=== PATIENT | female | born 1985 | race Caucasian/White ===

== ENCOUNTER 2020-12-30 16:14 | Outpatient (CLI) | payer OTHER, SELFPAY ==
--- NOTE | ~2020-12-30 | US_ITS ---
US OB <=14 wk fetus w TV DATE: 12/30/2020 16:45 INDICATION: age and viability determination TECHNIQUE: Real-time imaging via transabdominal and transvaginal approaches COMPARISON: None FINDINGS: The uterus measures 9.8 cm height, 4.2 cm anteroposterior and 5.2 cm transverse dimension. Uterine nabothian small cervical cyst. An intrauterine gestational sac is identified, normally shaped, with normal surrounding hyperechogeni city consistent with decidual reaction. Yolk sac and pole are detected. heart rate of 111 bpm. Renova-rump length averages 0.56 cm, consistent with estimated gestational age of 6 weeks 2 days +/- 4 days. DIANE by ultrasound is 08/23/2021 compared to 08/18/2021 by LMP. 5.7 x 3.9 x 5.0 cm left ovarian cyst. The ovaries and adnexal areas are otherwise unremarkable. No ab normal pelvic free fluid collection. IMPRESSION: Early live intrauterine gestation; estimated gestational age is 6 weeks 2 days +/- 4 days ; DIANE 08/23/2021 Reviewed, dictated and finalized at [facility]. Reviewed, dictated and finalized at location A. 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
== END 2020-12-30 16:15 ==
LOC: MICIMG 16:15
PROVIDERS: Visit Provider Obstetrics & Gynecology
DX: Z36.89 Encounter for other specified antenatal screening (principal); Z3A.01 Less than 8 weeks gestation of pregnancy
CPT/HCPCS: 76801; 76817

== ENCOUNTER 2021-02-25 13:27 | Emergency (ER) | payer OTHER, SELFPAY ==
--- NOTE | ~2021-02-25 | US_ITS ---
EXAMINATION: US OB limited DATE: 02/25/2021 15:09 INDICATION: Vaginal bleeding. Estimated gestational age of 14 weeks and 3 days. TECHNIQUE: Real-time ultrasound of the pelvis was performed. COMPARISON: Ultrasound 12/30/2020 FINDINGS: There is a single fetus in breech presentation. The placenta is posterior. There is a 1.4 x 1.3 x 1. 9 cm hematoma at the margin of the placenta. heart rate is 154 beats per minute (bpm). The amni otic fluid volume is subjectively normal. IMPRESSION: 1. Single living fetus in breech presentation. 2. Small hematoma at the margin of the placenta. Reviewed, dictated and finalized at location B.
[2021-02-25 13:30] VITALS: BP 151/85; PULSE 138; RESP 17; TEMP 36.9; O2SAT 100
--- NOTE | 2021-02-25 14:00 | ED.PREGNANCY ---
HPI - General Chief complaint: Vaginal Bleeding Stated complaint: vaginal bleeding at 15 wks Time Seen by Provider: 02/25/21 14:00 Source: patient and family Mode of arrival: ambulatory Limitations: no limitations History of Present Illness HPI Narrative: Patient is a 35-year-old female, G1, P0 currently 15 weeks who presents for evaluation of vaginal bleeding. Patient states she began to experience light spotting around noon today which was brownish in color. No bright red or brisk bleeding. Pt has had abdominal pain since the time she found out she was . She states this has been attributed to round ligament pain. Pain is dull in nature. No contraction like pain. No loss of fluids. No recent intercourse. Patient has been on pelvic rest due to the nature of her job which requires her to stand for long periods of time. Patient does state last week a 20 pound dog jumped onto her lap but she was not having any bleeding at that time thus did not seek any care or assessment. Patient is unsure of her blood type. Patient follows a Dr. Dolly Duran. Related Data Home Medications Medication Instructions Recorded Confirmed hydroxyzine HCl 02/25/21 Allergies Allergy/AdvReac Type Severity Reaction Status Date / Time cefaclor Allergy Mild Unknown Verified 02/25/21 13:34 codeine Allergy Unknown RASH AND Verified 02/25/21 13:34 VOMITING Review of Systems Review of Systems: Narrative: CONSTITUTIONAL: Denies fever CARDIOVASCULAR: Denies chest pain RESPIRATORY: Denies cough or dyspnea. GASTROINTESTINAL:Reports lower abdominal pain : Reports vaginal bleeding, denies dysuria SKIN: Denies rash MUSCULOSKELETAL: Denies back pain NEUROLOGIC: Denies headache [facility] Social History Social History (Updated 02/25/21 @ 14:48 by Rowan Masterson MD) Smoking status: Never smoker Alcohol intake: never Substance use: never Occupation/Education: occupation Additional occupation/education comments: [employer] Gender identity (if verbalized by the patient): Female Exam Narrative: Exam Narrative: GENERAL: Awake, alert, conversant HEAD: Normocephalic, atraumatic. EYES: PERRLA and EOMI. ENT: Nares clear, no rhinorrhea or epistaxis. Mucous membranes moist. NECK: Supple. CHEST: No respiratory distress, breathing even and non labored HEART: Regular rate, sinus rhythm ABDOMEN:Non distended, non tender, fundus palpable below the umbilicus : Labia majora and minora normal without lesions. Vagina with scant blood. No cervical motion tenderness. No adnexal tenderness or fullness bilaterally. No discharge present. EXTREMITIES: Normal range of motion. No edema. SKIN: Warm, dry, no rash. NEURO:No focal deficits. Alert and oriented x3 Course Vital Signs Vital signs: Vital Signs Temperature 36.9 C 02/25/21 13:30 Pulse Rate 138 H 02/25/21 13:30 Respiratory Rate 17 02/25/21 13:30 Blood Pressure 151/85 H 02/25/21 13:30 Pulse Oximetry 100 02/25/21 13:30 Temperature 36.9 C 02/25/21 13:30 Pulse Rate 121 H 02/25/21 14:30 Respiratory Rate 17 02/25/21 13:30 Blood Pressure 154/115 H 02/25/21 14:30 Pulse Oximetry 100 02/25/21 13:30 MDM - OB/Uterine Contractions MDM Narrative Medical decision making narrative: Patient presented for evaluation of vaginal bleeding in the setting of early . At the time of assessment patient is tachycardic. She is quite anxious and tearful at the time of initial assessment. Pelvic exam obtained and patient does have some scant bleeding, no brisk bleeding or evidence of large clots. No parts on exam. Patient does have some mild abdominal tenderness which is nonfocal, no peritoneal signs. IV access was obtained and patient was given Tylenol. Bedside ultrasound obtained which shows good movement heart rate of the fetus in the 150s. Laboratory work-up is reassuring. Mild leukocytosis which can be seen in the setting of pregna
[2021-02-25 14:27] LABS: Basophils Absolute Auto 0.1 K/mm3 (0.0-0.1); Basophils Percent Auto 0.4 % (0.2-1.2); Eosinophils Absolute Auto 0.1 K/mm3 (0-0.3); Eosinophils Percent Auto 0.8 % (0-4.4); Hematocrit 38.6 % (37.0-47.0); Hemoglobin 13.3 g/dL (12.0-15.0); Immature Granulocyte Absolute 0.35 K/mm3 (0.00-0.031); Immature Granulocyte Percent A 2.6 % (0-0.5); Lymphocytes Absolute Auto 2.43 K/mm3 (0.9-3.2); Lymphocytes Percent Auto 17.9 % (18.3-44.2); Mean Corpuscular HGB Conc 34.5 g/dl (32-36); Mean Corpuscular Hemoglobin 30.2 pg (26-34); Mean Corpuscular Volume 87.5 fl (80-100); Mean Platelet Volume 9.1 fl (7.4-10.4); Monocytes Absolute Auto 1.3 K/mm3 (0.1-0.6); Monocytes Percent Auto 9.6 % (2.6-8.5); Neutrophils Absolute Auto 9.4 K/mm3 (1.3-6.7); Neutrophils Percent Auto 68.7 % (45.5-73.1); Platelet Count Result 537 k/mm3 (150-375); Red Blood Count 4.41 M/mm3 (4.2-5.4); Red Cell Distribution Width 12.2 % (11.5-14.5); White Blood Count 13.6 K/mm3 (4.5-10.0)
[2021-02-25 14:28] VITALS: BP 144/92; PULSE 110
[2021-02-25 14:29] VITALS: BP 144/89; PULSE 112
[2021-02-25 14:30] VITALS: BP 154/115; PULSE 121
--- NOTE | 2021-02-25 14:30 | PC.NURSE ---
Patient requests no IV at this time due to her anxiety getting worse when the IV is in.
[2021-02-25 14:45] LABS: INR 0.9; Partial Thromboplastin Time 26.4 SECONDS (22.3-36.8); Prothrombin Time 12.8 Seconds (11.1-14.7)
[2021-02-25 16:43] LABS: Add Urine Microscopic? YES; Appearance Urine Cloudy (Clear); Bacteria Urine 2+ /hpf; Bilirubin Urine Negative (Negative); Blood Urine 1+ (Negative); Color Urine Yellow (Yellow); Glucose Urine UA Negative (Negative); Ketones Urine Negative (Negative); Leukocyte Esterase Ur 2+ LEU/UL (Negative); Nitrate Urine Negative (Negative); Protein Urine Negative (Negative); Specific Grav Ur 1.006 (1.001-1.035); Squamous Epithelial Cell Urine Many /hpf (Few); Urobilinogen Urine Negative mg/dL (<2.0); WBC Urine 16-20 /hpf
== END 2021-02-25 17:20 | disposition home or self-care (01) ==
PROVIDERS: Emergency Provider Emergency Medicine; PCP Family Medicine
DX: O46.92 Antepartum hemorrhage, unspecified, second trimester (principal); Z3A.15 15 weeks gestation of pregnancy
CPT/HCPCS: 36415; 76815; 81001; 84443; 84702; 85025; 85461; 85610; 85730; 87077; 87086; 87088; 99284

== ENCOUNTER 2021-05-10 19:46 | Emergency (ER) | payer OTHER, SELFPAY ==
[2021-05-10 19:47] VITALS: BP 161/95; PULSE 102; RESP 17; TEMP 36.8; O2SAT 100
[2021-05-10] MEDS: TETANUS,DIPHTHERIA,AC PERTUSSIS ADULT (0.5 ML) BOOSTRIX IM (20:02)
--- NOTE | 2021-05-10 20:22 | ED.GENADULT ---
HPI - General Adult General Chief complaint: Wound/Laceration Stated complaint: LAC Time Seen by Provider: 05/10/21 19:56 Source: patient and RN notes reviewed Mode of arrival: ambulatory Limitations: no limitations History of Present Illness HPI narrative: Patient is a 35-year-old female who presents with laceration of the thumb that occurred just prior to arrival patient was using a sample box maker when she cut the thumb patient is currently but denies any other complaints. Patient notes her tetanus is not up-to-date. Related Data Home Medications Medication Instructions Recorded Confirmed hydroxyzine HCl 02/25/21 Allergies Allergy/AdvReac Type Severity Reaction Status Date / Time cefaclor Allergy Mild Unknown Verified 05/10/21 19:46 codeine Allergy Unknown RASH AND Verified 05/10/21 19:46 VOMITING Review of Systems Review of Systems: All systems reviewed & are unremarkable except as noted in HPI and below PMFSH Social History Social History Smoking status: Never smoker Alcohol intake: never Substance use: never Additional occupation/education comments: [employer] Gender identity (if verbalized by the patient): Female Exam Narrative: Exam Narrative: GENERAL: Well-appearing, well-nourished, and in no acute distress. HEAD: Normocephalic, atraumatic. EYES: PERRLA and EOMI. ENT: Nares clear, no rhinorrhea or epistaxis. Mucous membranes moist. EXTREMITIES: Normal range of motion. No edema. Less than half centimeter linear superficial laceration to the tip of the left thumb not requiring closure SKIN: Warm, dry, no rash. NEURO: No focal deficits. Alert and oriented x3. Neurovascularly intact PSYCH: Normal mood and affect. Course Course Emergency Course: Patient's wound was dressed tetanus was given will be discharged with outpatient follow-up with primary care Vital Signs Vital signs: Vital Signs Temperature 98.2 F 05/10/21 19:47 Pulse Rate 102 H 05/10/21 19:47 Respiratory Rate 17 05/10/21 19:47 Blood Pressure 161/95 H 05/10/21 19:47 Pulse Oximetry 100 05/10/21 19:47 Temperature 98.2 F 05/10/21 19:47 Pulse Rate 102 H 05/10/21 19:47 Respiratory Rate 17 05/10/21 19:47 Blood Pressure 161/95 H 05/10/21 19:47 Pulse Oximetry 100 05/10/21 19:47 Medical Decision Making MDM Narrative Medical decision making narrative: Patients injury or pain is consistent with musculoskeletal etiology. No signs of neurological or vascular compromise on exam. Compartments and tisues are soft without signs of compartment syndrome. Pain is felt appropriate for further evaluation on an outpatient basis. Vital Signs Vital Signs: Vital Signs Temperature 98.2 F 05/10/21 19:47 Pulse Rate 102 H 05/10/21 19:47 Respiratory Rate 17 05/10/21 19:47 Blood Pressure 161/95 H 05/10/21 19:47 Pulse Oximetry 100 05/10/21 19:47 Temperature 98.2 F 05/10/21 19:47 Pulse Rate 102 H 05/10/21 19:47 Respiratory Rate 17 05/10/21 19:47 Blood Pressure 161/95 H 05/10/21 19:47 Pulse Oximetry 100 05/10/21 19:47 Discharge Plan Discharge Clinical Impression: Laceration Patient Disposition: Home, Self-Care Condition: Stable Instructions: Antibiotic Form, Laceration (ED) Additional Instructions: Keep wound clean and dry. Do not soak, take baths, or swim until wound is completely healed. If any signs of infection such as redness, swelling, increasing pain, drainage of purulent discharge, streaks up your extremity develop, seek medical attention immediately. Follow-up with primary care in the next 7 days as needed Prescriptions: No Action hydroxyzine HCl 50 mg tablet RF: 0 acetaminophen 500 mg capsule 500 mg PO Q6H PRN (Reason: fever or pain) Qty: 30 RF: 0 magnesium 30 mg tablet 30 mg PO .PRN daily 5 Days Qty: 20 RF: 0 Follow-up/Referrals: Buddy,Kenton Grier MD [Marcela
[2021-05-10 20:50] VITALS: BP 151/76; PULSE 96; RESP 18; TEMP 36.6; O2SAT 100
== END 2021-05-10 20:50 | disposition home or self-care (01) ==
PROVIDERS: Emergency Provider Emergency Medicine; PCP Family Medicine
DX: S61.012A Laceration without foreign body of left thumb without damage to nail, initial encounter (principal); Z23 Encounter for immunization; W27.8XXA Contact with other nonpowered hand tool, initial encounter; Z3A.00 Weeks of gestation of pregnancy not specified
CPT/HCPCS: 90471; 90715; 99282

== ENCOUNTER 2021-07-05 18:07 | Observation (INO) | payer OTHER, SELFPAY ==
--- NOTE | ~2021-07-05 | US_ITS ---
US venous doppler LE RT DATE: 07/05/2021 19:23 INDICATION: Right leg swelling. Patient is 34 weeks gravid. TECHNIQUE: Real-time and color flow imaging and Doppler analysis of the veins of the right lower extr emity COMPARISON: None FINDINGS: The greater saphenous vein is patent. There is spontaneous and phasic flow and normal augme ntation and color flow signal and normal compression of the deep veins of the right leg. IMPRESSION: Negative examination; no evidence of deep venous thrombosis of the right lower extremity Reviewed, dictated and finalized at [facility]. Reviewed, dictated and finalized at location A.
[2021-07-05 18:30] VITALS: BMI 48.3
[2021-07-05 18:32] VITALS: BP 130/87; PULSE 109
--- NOTE | 2021-07-05 18:35 | PC.NURSE ---
This patient, Jessica Alford, admitted to the OB room OB Post 116 for observation. Patient/family oriented to hospital policies and general routines including ID bracelet, bed and alarms, visiting hours, pain management, procedures, bathroom and other care routines, personal items, smoking policy, room service/diet, and visiting hours. Patient/Family are encouraged to report perceived risks to care and to ask questions if they do not understand what they are told or what they should do.
[2021-07-05 18:45] VITALS: BP 100/63; PULSE 108
--- NOTE | 2021-07-05 18:45 | PC.NURSE ---
Pt states she has had swelling of lower extremities with . States today she noted increase in swelling of right leg as compared to left. Denies pain. States slight bruise feeling to top of right foot. No redness or warmth. Measurements done Right ankle 27.5 cm Left 26. Right calf 43.5 Left calf 43. Pedal pulsed noted to both feet with doppler. Pt has good range of motion to both lower extremities.
[2021-07-05 19:00] VITALS: BP 122/76; PULSE 107
[2021-07-05 19:08] VITALS: TEMP 36.9
--- NOTE | 2021-07-05 19:10 | PC.NURSE ---
To ultrasound for doppler.
--- NOTE | 2021-07-05 19:30 | PC.NURSE ---
Pt back in room after doppler study. No complaints. No change in condition.
--- NOTE | 2021-07-05 19:44 | PC.NURSE ---
Negative doppler result reported to Dr. Mcgregor. Pt will be discharged to home.
--- NOTE | 2021-07-28 08:48 | PM.OBTRLD ---
OB - Triage/Final Diagnosis Visit Information Comments/Additional reasons for admission: I have assessed the risk for this patient, Jessica Alford, and determined that she would benefit from observation care. Final Diagnosis (1) Edema during : Code(s): O12.00 - Gestational edema, unspecified trimester Status: Acute
== END 2021-07-05 20:30 | disposition home or self-care (01) ==
PROVIDERS: Admitting Provider Obstetrics & Gynecology; PCP Family Medicine; Visit Provider Obstetrics & Gynecology
DX: O12.03 Gestational edema, third trimester (principal); Z3A.33 33 weeks gestation of pregnancy; R22.41 Localized swelling, mass and lump, right lower limb
CPT/HCPCS: 93971; G0378; G0379

== ENCOUNTER 2021-07-30 11:30 | Outpatient (RCR) | payer OTHER, SELFPAY ==
[2021-07-30 12:09] VITALS: BP 127/72; PULSE 103
--- NOTE | 2021-07-30 16:24 | PM.OBTRLD ---
OB - Triage/Final Diagnosis Visit Information Reason for evaluation: decreased movement Comments/Additional reasons for admission: I have assessed the risk for this patient, Jessica Rodger Alford, and determined that she would benefit from observation care.
== END 2021-09-22 10:34 | disposition home or self-care (01) ==
LOC: ANHOBOP 11:30
PROVIDERS: PCP Family Medicine; Visit Provider Obstetrics & Gynecology
DX: O36.8130 Decreased fetal movements, third trimester, not applicable or unspecified (principal); Z3A.37 37 weeks gestation of pregnancy
CPT/HCPCS: 59025

== ENCOUNTER 2021-08-07 16:05 | Outpatient (CLI) | payer OTHER, SELFPAY ==
[2021-08-07] VITALS (9 sets, daily range): BP systolic 109–143; BP diastolic 57–90; PULSE 111–119; RESP 18; TEMP 36.6; BMI 38.4
[2021-08-07 18:12] LABS: Basophils Absolute Auto 0.1 K/mm3 (0.0-0.1); Basophils Percent Auto 0.7 % (0.2-1.2); Eosinophils Absolute Auto 0.1 K/mm3 (0-0.3); Eosinophils Percent Auto 0.9 % (0-4.4); Hematocrit 36.2 % (37.0-47.0); Hemoglobin 12.4 g/dL (12.0-15.0); Immature Granulocyte Absolute 0.79 K/mm3 (0.00-0.031); Immature Granulocyte Percent A 5.4 % (0-0.5); Lymphocytes Absolute Auto 1.97 K/mm3 (0.9-3.2); Lymphocytes Percent Auto 13.4 % (18.3-44.2); Mean Corpuscular HGB Conc 34.3 g/dl (32-36); Mean Corpuscular Hemoglobin 30.2 pg (26-34); Mean Corpuscular Volume 88.1 fl (80-100); Mean Platelet Volume 8.5 fl (7.4-10.4); Monocytes Absolute Auto 1.2 K/mm3 (0.1-0.6); Monocytes Percent Auto 8.1 % (2.6-8.5); Neutrophils Absolute Auto 10.6 K/mm3 (1.3-6.7); Neutrophils Percent Auto 71.5 % (45.5-73.1); Platelet Count Result 450 k/mm3 (150-375); Red Blood Count 4.11 M/mm3 (4.2-5.4); Red Cell Distribution Width 13.3 % (11.5-14.5); White Blood Count 14.8 K/mm3 (4.5-10.0)
[2021-08-07 18:17] LABS: Add Urine Microscopic? YES; Appearance Urine Cloudy (Clear); Bacteria Urine Trace /hpf; Bilirubin Urine Negative (Negative); Color Urine Yellow (Yellow); Glucose Urine UA Negative (Negative); Ketones Urine Trace mg/dL (Negative); Leukocyte Esterase Ur 2+ LEU/UL (Negative); Mucus Urine Rare /lpf; Nitrate Urine Negative (Negative); Protein Urine 1+ mg/dL (Negative); RBC Urine 0-2 /hpf (0-2); Specific Grav Ur 1.018 (1.001-1.035); Squamous Epithelial Cell Urine Many /hpf (Few); Urobilinogen Urine Negative mg/dL (<2.0)
[2021-08-07 18:21] LABS: Blood Urine Negative (Negative)
[2021-08-07 18:23] LABS: Alanine Aminotransferase 15 U/L (4-35); Albumin Level 3.7 g/dL (3.5-5.1); Alkaline Phosphatase 273 U/L (38-126); Anion Gap 7 mmol/L (8-16); Aspartate Amino Transferase 26 U/L (14-36); Bilirubin,Total 0.3 mg/dL (0.2-1.3); Blood Urea Nitrogen 9 mg/dL (7-17); Carbon Dioxide 23 mmol/L (22-30); Chloride 104 mmol/L (98-107); Estimated Glomerular Filt Rate > 60; Glucose 118 mg/dL (65-110); Potassium 3.7 mmol/L (3.4-5.0); Sodium 134 mmol/L (137-145); Uric Acid 6.2 mg/dL (2.5-7.5)
[2021-08-07 18:54] LABS: Creatinine Urine 159.6 mg/dL
[2021-08-07 19:23] LABS: Total Protein Urine Random < 5 mg/dL
[2021-08-07 19:24] LABS: Ur Ttl Prot Creatinine Ratio < 0.03 mg/mg (0-0.20)
--- NOTE | 2021-08-07 21:35 | PM.OBTRLD ---
OB - Triage/Final Diagnosis Visit Information Date of evaluation: 08/07/21 Reason for evaluation: threatened labor Comments/Additional reasons for admission: I have assessed the risk for this patient, Jessica Alford, and determined that she would benefit from observation care. Evaluation Laboratory results: Laboratory Tests 08/07/21 08/07/21 08/07/21 17:52 17:52 17:52 WBC 14.8 H RBC 4.11 L Hgb 12.4 Hct 36.2 L MCV 88.1 MCH 30.2 MCHC 34.3 RDW 13.3 Plt Count 450 H MPV 8.5 Immature Gran % (Auto) 5.4 H Neut % (Auto) 71.5 Lymph % (Auto) 13.4 L [place] % (Auto) 8.1 Eos % (Auto) 0.9 Baso % (Auto) 0.7 Lymph # (Auto) 1.97 [place] # (Auto) 1.2 H Eos # (Auto) 0.1 Baso # (Auto) 0.1 Abs Immat Gran (auto) 0.79 H Absolute Neuts (auto) 10.6 H Absolute Nucleated RBC 0.0 Nucleated RBC % 0.0 Sodium 134 L Potassium 3.7 Chloride 104 Carbon Dioxide 23 Anion Gap 7 L BUN 9 Creatinine 0.60 L Estim Creat Clear Calc Not Reportable Estimated GFR > 60 Glucose 118 H Uric Acid 6.2 Calcium 10.0 Total Bilirubin 0.3 AST 26 ALT 15 Alkaline Phosphatase 273 H Total Protein 7.0 Albumin 3.7 Urine Color Urine Appearance Urine pH Ur Specific [place] Urine Protein Urine Glucose (UA) Urine Ketones Ur Blood (Man) Urine Nitrate Urine Bilirubin Urine Urobilinogen Leukocyte Esterase Rfl Urine RBC Urine WBC Ur Squamous Epith Cells Urine Bacteria Urine Mucus U Random Total Protein < 5 Urine Creatinine 159.6 Protein/Creat Ratio 2 < 0.03 08/07/21 17:52 WBC RBC Hgb Hct MCV MCH MCHC RDW Plt Count MPV Immature Gran % (Auto) Neut % (Auto) Lymph % (Auto) [place] % (Auto) Eos % (Auto) Baso % (Auto) Lymph # (Auto) [place] # (Auto) Eos # (Auto) Baso # (Auto) Abs Immat Gran (auto) Absolute Neuts (auto) Absolute Nucleated RBC Nucleated RBC % Sodium Potassium Chloride Carbon Dioxide Anion Gap BUN Creatinine Estim Creat Clear Calc Estimated GFR Glucose Uric Acid Calcium Total Bilirubin AST ALT Alkaline Phosphatase Total Protein Albumin Urine Color Yellow Urine Appearance Cloudy H Urine pH 6.0 Ur Specific [place] 1.018 Urine Protein 1+ H Urine Glucose (UA) Negative Urine Ketones Trace Ur Blood (Man) Negative Urine Nitrate Negative Urine Bilirubin Negative Urine Urobilinogen Negative Leukocyte Esterase Rfl 2+ H Urine RBC 0-2 Urine WBC 7-9 H Ur Squamous Epith Cells Many H Urine Bacteria Trace Urine Mucus Rare U Random Total Protein Urine Creatinine Protein/Creat Ratio 2 Vital signs: Vital Signs - 24 hr 08/07/21 17:16 08/07/21 17:46 08/07/21 18:16 Temperature Pulse Rate 117 H 114 H 119 H Respiratory Rate Blood Pressure 143/80 H 109/72 Blood Pressure [Left Arm] 134/90 08/07/21 18:31 08/07/21 18:38 08/07/21 18:46 Temperature 97.9 F Pulse Rate 118 H 112 H Respiratory Rate 18 Blood Pressure 114/70 117/57 L Blood Pressure [Left Arm] 08/07/21 19:01 08/07/21 19:16 08/07/21 19:17 Temperature Pulse Rate 111 H 117 H 117 H Respiratory Rate Blood Pressure 127/84 136/76 136/76 Blood Pressure [Left Arm]
== END 2021-08-07 19:34 | disposition home or self-care (01) ==
LOC: ANHOBOP 17:31 → ANHLDR 17:31
PROVIDERS: PCP Family Medicine; Visit Provider Obstetrics & Gynecology
DX: O42.90 Premature rupture of membranes, unspecified as to length of time between rupture and onset of labor, unspecified weeks of gestation (principal); O13.9 Gestational [pregnancy-induced] hypertension without significant proteinuria, unspecified trimester; Z3A.00 Weeks of gestation of pregnancy not specified
CPT/HCPCS: 36415; 80053; 81001; 82570; 84112; 84156; 84550; 85025; 87077; 87086; 87088; 99199

== ENCOUNTER 2021-08-12 05:02 | Inpatient (IN) | payer OTHER, SELFPAY ==
[2021-08-12] VITALS (118 sets, daily range): BP systolic 108–162; BP diastolic 48–102; PULSE 90–138; RESP 16; TEMP 36.7–37.2; O2SAT 81–100; BMI 39.6
--- NOTE | 2021-08-12 05:05 | PM.IMHP ---
H&P: HPI History of Present Illness Date/Time: 08/12/21 05:05 35-year-old 1 para 0 whose last menstrual was 11/11/2020, EDC is 08/18/2021, presents at 39 weeks gestation for induction of labor. She is positive for group B strep. She suffers from bipolar disorder panic disorder. Her cervix is favorable Chief Complaint: induction of labor at term with group B strep positive i Review of Systems Review of Systems: All systems reviewed & are unremarkable except as noted in HPI and below PMFSH Family History Family History Sibling Cerebral palsy Social History Social History Smoking status: Never smoker Alcohol intake: never Substance use: never Additional occupation/education comments: [employer] Gender identity (if verbalized by the patient): Female Spiritual care concerns: No Meds Home Medications and Allergies Home Medications Medication Instructions Recorded Confirmed Type acetaminophen 500 mg PO Q6H PRN #30 cap 02/25/21 08/07/21 Rx hydroxyzine HCl 50 mg PO HS 02/25/21 08/07/21 History Classic 1 tablet PO DAILY 07/05/21 08/07/21 History calcium carbonate-vitamin D3 1 tablet PO DAILY 07/05/21 08/07/21 History lamotrigine 100 mg PO DAILY 07/05/21 08/07/21 History ascorbic acid (vitamin C) 250 mg PO DAILY 08/07/21 08/07/21 History famotidine [Pepcid AC] 10 mg PO BID PRN 08/07/21 08/07/21 History Allergies Allergy/AdvReac Type Severity Reaction Status Date / Time cefaclor Allergy Unknown Hives Verified 07/30/21 16:09 codeine AdvReac Severe Nausea and Verified 07/30/21 16:09 Vomiting Exam Const: General: no acute distress Eyes: General: appearance normal, both eyes and all related structures Neck: Neck: supple and no JVD Thyroid: thyroid normal Resp: Effort & Inspection: normal respiratory effort Auscultation: clear to auscultation bilaterally Cardio: Rate: regular rate Rhythm: regular rhythm GI: Inspection: non-distended GI Palp: Yes Soft to palpation, No Tenderness to palpation present (GI) and No Guarding due to palpation present (GI) Auscultation: normal bowel sounds : General: Yes bladder normal to palpation External Female Exam: normal external appearance Speculum Exam - Vagina: normal vaginal discharge and No vaginal bleeding Speculum Exam - Cervix: nontender Bimanual exam- vagina & uterus: bladder normal to palpation and No Cervical tenderness present OB/external & speculum: No vaginal bleeding Skin: General skin exam: no rashes or lesions noted Extrem: General: normal to inspection and no edema Psych: Mental Status: mental status grossly normal Affect: normal affect Assessment and Plan Additional Plan impression term with favorable cervix group B strep with multiple psychologic abnormalities Plan: Medical induction of labor. Spontaneous vaginal delivery is expected. Group B strep prophylaxis will be undertaken. She has an epidural candidate
--- NOTE | 2021-08-12 05:24 | LDADM ---
This patient, Jessica Alford, was admitted to Labor/Delivery/Recovery 103 on 08/12/21 at 05:02. Plans for labor, pain management and were discussed with patient. Patient/family oriented to hospital policies and general routines including ID bracelet, bed and alarms, visiting hours, pain management, procedures, bathroom and other care routines, personal items, smoking policy, room service/diet and guest tray routines, infant security routines, and visiting hours. Patient/Family are encouraged to report perceived risks to care and to ask questions if they do not understand what they are told or what they should do. See OBIX for further documentation.
[2021-08-12] MEDS: LACTATED RINGERS 1,000 ML 125 ML IV CONT ×2 (05:33→08:35)
[2021-08-12] MEDS: OXYTOCIN 30 UNITS/NS 500 ML 30 UNITS/500 ML BAG 6 UNITS IV CONT (05:34)
[2021-08-12] MEDS: AMPICILLIN 2 GM/NS 100 ML 2 GM/100 ML BAG IVPB (05:34)
[2021-08-12 05:39] LABS: Basophils Absolute Auto 0.1 K/mm3 (0.0-0.1); Basophils Percent Auto 0.5 % (0.2-1.2); Eosinophils Absolute Auto 0.2 K/mm3 (0-0.3); Eosinophils Percent Auto 1.6 % (0-4.4); Hematocrit 35.7 % (37.0-47.0); Hemoglobin 12.3 g/dL (12.0-15.0); Immature Granulocyte Absolute 0.69 K/mm3 (0.00-0.031); Immature Granulocyte Percent A 5.2 % (0-0.5); Lymphocytes Absolute Auto 2.68 K/mm3 (0.9-3.2); Lymphocytes Percent Auto 20.2 % (18.3-44.2); Mean Corpuscular HGB Conc 34.5 g/dl (32-36); Mean Corpuscular Hemoglobin 30.7 pg (26-34); Mean Platelet Volume 8.5 fl (7.4-10.4); Monocytes Absolute Auto 1.4 K/mm3 (0.1-0.6); Monocytes Percent Auto 10.2 % (2.6-8.5); Neutrophils Absolute Auto 8.3 K/mm3 (1.3-6.7); Neutrophils Percent Auto 62.3 % (45.5-73.1); Platelet Count Result 428 k/mm3 (150-375); Red Blood Count 4.01 M/mm3 (4.2-5.4); Red Cell Distribution Width 13.3 % (11.5-14.5); White Blood Count 13.2 K/mm3 (4.5-10.0)
[2021-08-12 06:09] LABS: Atypical Lymphocytes Present
--- NOTE | 2021-08-12 09:13 | WPDANESEPP ---
Anes - Eval Pre Procedure Procedure: labor epidural Date/Time: 08/12/21 09:13 Surgeon: anastasiya mcneill Pre Op Diagnosis: IOL Patient Data Age: 35 Gender: F Height: 1.7 m Weight: 115 kg Last Vital Signs Temp 36.9 C 08/12/21 07:30 Pulse 100 08/12/21 09:01 BP 137/75 08/12/21 09:01 Allergies Allergy/AdvReac Type Severity Reaction Status Date / Time cefaclor Allergy Unknown Hives Verified 08/12/21 05:30 codeine AdvReac Severe Nausea and Verified 08/12/21 05:30 Vomiting Home Medications Medication Instructions Recorded Confirmed Type acetaminophen 500 mg PO Q6H PRN #30 cap 02/25/21 08/12/21 Rx hydroxyzine HCl 50 mg PO HS 02/25/21 08/07/21 History Classic 1 tablet PO DAILY 07/05/21 08/07/21 History calcium carbonate-vitamin D3 1 tablet PO DAILY 07/05/21 08/07/21 History lamotrigine 100 mg PO DAILY 07/05/21 08/12/21 History ascorbic acid (vitamin C) 250 mg PO DAILY 08/07/21 08/07/21 History famotidine [Pepcid AC] 10 mg PO BID PRN 08/07/21 08/12/21 History Laboratory Tests 08/12/21 08/12/21 08/12/21 05:32 05:32 05:32 WBC 13.2 K/mm3 H K/mm3 (4.5-10.0) RBC 4.01 M/mm3 L M/mm3 (4.2-5.4) Hgb 12.3 g/dL g/dL (12.0-15.0) Hct 35.7 % L % (37.0-47.0) MCV 89.0 fl fl (80-100) MCH 30.7 pg pg (26-34) MCHC 34.5 g/dl g/dl (32-36) RDW 13.3 % % (11.5-14.5) Plt Count 428 k/mm3 H k/mm3 (150-375) MPV 8.5 fl fl (7.4-10.4) Immature Gran % (Auto) 5.2 % H % (0-0.5) Neut % (Auto) 62.3 % % (45.5-73.1) Lymph % (Auto) 20.2 % % (18.3-44.2) [place] % (Auto) 10.2 % H % (2.6-8.5) Eos % (Auto) 1.6 % % (0-4.4) Baso % (Auto) 0.5 % % (0.2-1.2) Lymph # (Auto) 2.68 K/mm3 K/mm3 (0.9-3.2) [place] # (Auto) 1.4 K/mm3 H K/mm3 (0.1-0.6) Eos # (Auto) 0.2 K/mm3 K/mm3 (0-0.3) Baso # (Auto) 0.1 K/mm3 K/mm3 (0.0-0.1) Abs Immat Gran (auto) 0.69 K/mm3 H K/mm3 (0.00-0.031) Absolute Neuts (auto) 8.3 K/mm3 H K/mm3 (1.3-6.7) Absolute Nucleated RBC 0.0 K/mm3 K/mm3 (0.0-0.012) Nucleated RBC % 0.0 % % (0.0-0.2) Atypical Lymphocytes Present Platelet Estimate Slightly increased (Adequate) RPR Pending Blood Type A Positive Antibody Screen Negative Patient hx anesthesia problems: none Family hx anesthesia problems: none Results Review: All pre-operative results and documents have been reviewed as part of the pre-operative evaluation. [facility] Family History Family History Sibling Cerebral palsy Social History Social History Smoking status: Former smoker Alcohol intake: never Substance use: never Additional occupation/education comments: [employer] Gender identity (if verbalized by the patient): Female Spiritual care concerns: No Exam Day of Procedure 08/12/21 09:13
[2021-08-12] MEDS: AMPICILLIN 1 GM/NS 50 ML 1 GM/50 ML BAG IVPB ×2 (09:45→13:45)
[2021-08-12 11:03] LABS: Rapid Plasma Reagin Non-Reactive (NonReactive)
--- NOTE | 2021-08-12 11:45 | PM.OBPNLAB ---
Pain Control Date/time seen: 08/12/21 11:45 Pain control: epidural Pelvic Exam Dilation (cm): 5 Effacement (%): 90 station: -1 Amniotic membrane status: Leaking Contractions Monitor mode: External Contraction pattern: Regular
--- NOTE | 2021-08-12 16:08 | PM.OBPNLAB ---
Pain Control Date/time seen: 08/12/21 16:08 Pain control: tolerating well and epidural Pelvic Exam Dilation (cm): 10 Effacement (%): 90 station: -1 Amniotic membrane status: Leaking Contractions Monitor mode: External Contraction pattern: Regular
--- NOTE | 2021-08-12 18:07 | PM.OBPRVD ---
OB - Delivery Note Procedure Delivery date: 08/12/21 Procedure: mil Intrapartal events: None Induction method: AROM Delivery augmentation: pitocin Delivery monitor: external FHT Route of delivery: Episiotomy description: None Laceration Description: Perineal - 2nd Degree Delivery repair: vicryl Specimen: No Quantitative Blood Loss (ml): 158 Anesthesia type: Epidural Disposition: floor Baby Date of : 08/12/21 Time of : 17:44 Weeks of gestation at delivery: 39 Infant gender: Male Weight (pounds): 8 Weight (ounces): 10 presentation: vertex position: Right Occiput Anterior Placenta delivery description: Spontaneous cord vessel description: Delayed Cord Clamping score one minute: 8 score five minutes: 9 Narrative: amp x 3 for gbs
[2021-08-12] MEDS: OXYTOCIN 30 UNITS/NS 500 ML 30 UNITS/500 ML BAG 125 UNITS IV CONT (18:13)
[2021-08-12] MEDS: WITCH HAZEL 40 PADS 1 PAD TOPICAL (19:10)
[2021-08-12] MEDS: BENZOCAINE 20% AER SPR (*SP) 56 GM CAN 1 SPRAY TOPICAL (19:10)
[2021-08-12] MEDS: IBUPROFEN 600 MG TABLET PO (19:10)
--- NOTE | 2021-08-12 20:20 | OBPPTRN ---
Patient transferred to post room #277 via wheelchair. Support person present. Oriented to unit, room, information board, rooming in, admission packet and security measures. Patient verbalizes understanding.
[2021-08-12] MEDS: DOCUSATE SODIUM 100 MG CAPSULE PO (21:10)
[2021-08-12] MEDS: lamoTRIgine 25 MG TABLET 50 MG PO (21:10)
[2021-08-13 03:30] VITALS: BP 131/87; PULSE 98; RESP 16; TEMP 36.6; O2SAT 99
[2021-08-13 05:16] LABS: Hematocrit 33.2 % (37.0-47.0)
[2021-08-13] MEDS: IBUPROFEN 600 MG TABLET PO ×3 (07:09→21:24)
[2021-08-13 07:10] VITALS: BP 116/75; PULSE 95; TEMP 36.5; O2SAT 99
[2021-08-13] MEDS: DOCUSATE SODIUM 100 MG CAPSULE PO (07:10)
--- NOTE | 2021-08-13 07:45 | PM.OBPNVD ---
OB - PN: Subj Subjective Date/time seen: 08/13/21 07:45 Patient comments: no complaints and pain well controlled baby status: doing well and nursing well OB - PN: Obj Data Labs CBC & Chem 7: 08/13/21 03:31 Labs: Laboratory Results - last 24 hr 08/12/21 08/13/21 05:32 03:31 Hgb 11.0 L Hct 33.2 L RPR Non-reactive OB - PN A/P Plan day: 1 Plan: routine care Time Spent With Patient Time: Total time spent is greater than 50% in coordination of care (as documented) at patient's floor/unit and/or counseling patient: Time with patient: less than 15 minutes Review of Systems Review of Systems: All systems reviewed & are unremarkable except as noted in HPI and below Exam Const: General: no acute distress Eyes: General: appearance normal, both eyes and all related structures Neck: Neck: supple and no JVD Thyroid: thyroid normal Resp: Effort & Inspection: normal respiratory effort Auscultation: clear to auscultation bilaterally Cardio: Rate: regular rate Rhythm: regular rhythm GI: Inspection: non-distended GI Palp: Yes Soft to palpation, No Tenderness to palpation present (GI) and No Guarding due to palpation present (GI) Auscultation: normal bowel sounds : General: Yes bladder normal to palpation External Female Exam: normal external appearance Speculum Exam - Vagina: normal vaginal discharge and No vaginal bleeding Speculum Exam - Cervix: nontender Bimanual exam- vagina & uterus: bladder normal to palpation and No Cervical tenderness present OB/external & speculum: No vaginal bleeding Skin: General skin exam: no rashes or lesions noted Extrem: General: normal to inspection and no edema Psych: Mental Status: mental status grossly normal Affect: normal affect
[2021-08-13] MEDS: lamoTRIgine 25 MG TABLET 50 MG PO ×2 (09:15→21:25)
[2021-08-13 12:25] VITALS: BP 130/78; PULSE 93; RESP 18; TEMP 36.8; O2SAT 98
--- NOTE | 2021-08-13 14:34 | WPDANLDPN2 ---
Anes-Prog Note L&D Date/Time: 08/13/21 14:34 Comfortable throughout: labor and delivery Neuraxial method: spinal Epidural/Spinal procedure site: clean & non-tender Neuro status: Neuro function grossly intact. Cardiovascular status: normal Respiratory status: normal Airway patency: baseline Mental status: baseline Post-Op hydration status: normal Vital Signs: Last Vital Signs Temp 36.8 C 08/13/21 12:25 Pulse 93 08/13/21 12:25 Resp 18 08/13/21 12:25 BP 130/78 08/13/21 12:25 Pulse Ox 98 08/13/21 12:25 Pain score (VAS): 0 I/O: Intake & Output 08/12/21 08/13/21 08/13/21 23:59 07:59 15:59 Intake Total 1000 Output Total 150 Balance 850 Post-procedural complaints: none Patient feedback: Patient satisfied with anesthetic care.
[2021-08-13 16:30] VITALS: BP 123/81; PULSE 88; RESP 14; TEMP 36.4; O2SAT 100
[2021-08-13 20:00] VITALS: BP 150/86; PULSE 94; RESP 18; TEMP 36.4; O2SAT 99
--- NOTE | 2021-08-14 07:09 | PM.DS ---
DS: Admitting Diagnosis Discharge Date 08/14/2021 Admitting Diagnosis term favorable cervix /positive group B strep/bipolar disorder DS: Summary Hospital Course Hospital Course: Patient was admitted for induction of labor. She underwent spontaneous vaginal delivery with adequate group B strep prophylaxis. Her postop course was unremarkable. She increased her Lamictal to 50 b.i.d. and was feeling well and without depressive symptoms. She was up, voiding without difficulty, ambulating, generally without complaints Time Spent with Patient Time attestation: Total time spent providing and/or coordinating discharge services: Exam Const: General: no acute distress Eyes: General: appearance normal, both eyes and all related structures Neck: Neck: supple and no JVD Thyroid: thyroid normal Resp: Effort & Inspection: normal respiratory effort Auscultation: clear to auscultation bilaterally Cardio: Rate: regular rate Rhythm: regular rhythm GI: Inspection: non-distended GI Palp: Yes Soft to palpation, No Tenderness to palpation present (GI) and No Guarding due to palpation present (GI) Auscultation: normal bowel sounds : General: Yes bladder normal to palpation External Female Exam: normal external appearance Speculum Exam - Vagina: normal vaginal discharge and No vaginal bleeding Speculum Exam - Cervix: nontender Bimanual exam- vagina & uterus: bladder normal to palpation and No Cervical tenderness present OB/external & speculum: No vaginal bleeding Skin: General skin exam: no rashes or lesions noted Extrem: General: normal to inspection and no edema Psych: Mental Status: mental status grossly normal Affect: normal affect Discharge Plan Discharge Attending physician on discharge: Jimenez Santos Discharging Clinician: Jimenez Santos Patient Disposition: Home, Self-Care Activity: may shower, no straining and pelvic rest Diet: heart healthy Wound Care Instructions: follow printed instructions Patient Instructions: Antibiotic Form Stand Alone Forms: General Discharge Information Follow-up/Referrals: Jimenez Santos MD [Physician] - Discharge Medications: New hydrocodone-acetaminophen 5-325 mg tablet 1 tablet PO Q4H PRN (Reason: pain) Qty: 20 RF: 0 Continued hydroxyzine HCl 50 mg tablet 50 mg PO HS RF: 0 acetaminophen 500 mg capsule 500 mg PO Q6H PRN (Reason: fever or pain) Qty: 30 RF: 0 famotidine [Pepcid AC] 10 mg Tablet 10 mg PO BID PRN (Reason: Heartburn) RF: 0 ascorbic acid (vitamin C) 250 mg Tablet 250 mg PO DAILY RF: 0 calcium carbonate-vitamin D3 600 mg(1,500mg) -200 unit Tablet 1 tablet PO DAILY RF: 0 lamotrigine 25 mg tablet 100 mg PO DAILY RF: 0 Classic 28 mg iron- 800 mcg Tablet 1 tablet PO DAILY RF: 0 Date of admission: 08/12/21 05:02 Primary Care Provider: Buddy,Kenton Grier Admitting Provider: Jimenez Santos Attending physician on admission: Jimenez Santos Condition: Stable
--- NOTE | 2021-08-14 07:13 | PM.OBPNVD ---
OB - PN: Subj Subjective Date/time seen: 08/14/21 07:13 Patient comments: no complaints and pain well controlled baby status: doing well and nursing well OB - PN: Obj Data Labs CBC & Chem 7: 08/13/21 03:31 OB - PN A/P Plan day: 2 Plan: routine care, discharge home and follow up 6 weeks (4 weeks) Time Spent With Patient Time: Total time spent is greater than 50% in coordination of care (as documented) at patient's floor/unit and/or counseling patient: Time with patient: less than 15 minutes Review of Systems Review of Systems: All systems reviewed & are unremarkable except as noted in HPI and below Exam Const: General: no acute distress Eyes: General: appearance normal, both eyes and all related structures Neck: Neck: supple and no JVD Thyroid: thyroid normal Resp: Effort & Inspection: normal respiratory effort Auscultation: clear to auscultation bilaterally Cardio: Rate: regular rate Rhythm: regular rhythm GI: Inspection: non-distended GI Palp: Yes Soft to palpation, No Tenderness to palpation present (GI) and No Guarding due to palpation present (GI) Auscultation: normal bowel sounds : General: Yes bladder normal to palpation External Female Exam: normal external appearance Speculum Exam - Vagina: normal vaginal discharge and No vaginal bleeding Speculum Exam - Cervix: nontender Bimanual exam- vagina & uterus: bladder normal to palpation and No Cervical tenderness present OB/external & speculum: No vaginal bleeding Skin: General skin exam: no rashes or lesions noted Extrem: General: normal to inspection and no edema Psych: Mental Status: mental status grossly normal Affect: normal affect
[2021-08-14 07:40] VITALS: BP 132/86; PULSE 80; RESP 16; TEMP 36.3; O2SAT 99
[2021-08-14 09:00] VITALS: PULSE 80; RESP 16; O2SAT 99
[2021-08-14] MEDS: lamoTRIgine 25 MG TABLET 50 MG PO (09:04)
[2021-08-14] MEDS: IBUPROFEN 600 MG TABLET PO (09:04)
[2021-08-14] MEDS: DOCUSATE SODIUM 100 MG CAPSULE PO (09:06)
[2021-08-14] MEDS: MULTIVIT/MIN/PREN/FOL AC/IRON TABLET 1 TAB PO (09:06)
--- NOTE | 2021-08-14 12:23 | PC.NURSE ---
1000-Patient viewed the discharge video Mother & Baby Care, The First Two Weeks . Patient was given the opportunity and encouraged to ask questions. Patient verbalized understanding of information shared and has been given the mother/baby guide for home reference.
[2021-08-15 09:37] VITALS: BP 126/81; PULSE 84; RESP 20; TEMP 36.8; O2SAT 100
== END 2021-08-14 12:30 | disposition home or self-care (01) | DRG 807 ==
LOC: ANHLDR 05:09 → ANHOB2 20:29
PROVIDERS: Admitting Provider Obstetrics & Gynecology; PCP Family Medicine; Visit Provider Obstetrics & Gynecology
DX: O99.824 Streptococcus B carrier state complicating childbirth (principal); Z37.0 Single live birth; O70.1 Second degree perineal laceration during delivery; O69.81X0 Labor and delivery complicated by cord around neck, without compression, not applicable or unspecified; Z3A.39 39 weeks gestation of pregnancy; F31.9 Bipolar disorder, unspecified; O99.344 Other mental disorders complicating childbirth
CPT/HCPCS: 36415; 85014; 85018; 85025; 86592; 86850; 86900; 86901; A9270; J0290; J2590; J2795; J7120

== ENCOUNTER 2021-09-02 10:41 | Outpatient (RCR) | payer OTHER, SELFPAY ==
--- NOTE | 2021-09-02 13:37 | PC.NURSE ---
IN OUT HISTORY: Pt. delivered at [facility] at 39 weeks. had no complications after delivery. Mother had no complications after delivery. Mother has a HX of PCOS, infertility requiring clomid this and reports high anxiety with bipolar 1. Mother and infant discharged successfully. is now 3weeks old. appears to be well cared for. last seen/will be seen by ICP on at 2 weeks. Mother reports: Currently at 6 wets per day and 2-3 yellow seedy stools per day. Mother is currently putting infant to breast every 2-3 hours for 30 minutes for all day feedings, infant will then take up to 2 oz. Infant continues to act fussy after bottle feeding and mother feels infant will take more if given. Mother has attempted pacifier use between feedings and infant does not take and continues with fussiness. Infant is bottle fed formula by FOB at 2 night feedings. Mother will occasionally pump at night. Mother pumps after each day feeding for 20-30 minutes using a double electric pump. Mother will pump between .5-1 oz per session, more times on the .5 oz. Mother reports she is very tired and anxious with feeding patterns and is unsure what to do at this time. Discussed mother's options at this time of: Continuing current feeding plan of putting infant to breast then bottle feeding, suggesting mother increase bottle amount to 3 oz. Advised to make sure is burped after all feedings and continues to keep upright for 20 minutes as ICP has suggested for spitting up. Mother will pump every three hours for 20 minutes using warm compresses before feeding and massage while pumping. She will then bottle feed as much as he desires using EBM/formula per feeding. Discussed infant may want more per feeding if he is not at breast and milk supply may decrease if she has less stimulation. Mother states she will continue to pump and bottle feed. Mother states she does not feel she is up to current feeding plan schedule and is beginning to have sleep issues and increasing anxiety Advised mother call her if she has increased anxiety and/or bipolar tendencies and to discuss with her ICP. Mother has a small plugged duct in right auxiliary area. Advised warm compresses and to massage with slight pressure while pumping. If area is not resolved within a few days or if area should be warm to touch, read or increase in discomfort to call OB for appt. Plan for follow up phone call on Wednesday09-05-2021, mother will call when she is available.
== END 2021-11-20 13:56 | disposition home or self-care (01) ==
LOC: ANHOBOP 10:41
PROVIDERS: PCP Family Medicine; Visit Provider Pediatrics
DX: Z39.1 Encounter for care and examination of lactating mother (principal)
CPT/HCPCS: 99212; G0463

== ENCOUNTER 2022-03-01 11:40 | Emergency (ER) | payer OTHER, SELFPAY ==
[2022-03-01 11:48] VITALS: BP 142/104; PULSE 86; RESP 18; TEMP 36.6; O2SAT 100
--- NOTE | 2022-03-01 12:04 | ED.GENADULT ---
HPI - General Adult General Chief complaint: Headache Stated complaint: Headache Time Seen by Provider: 03/01/22 12:05 Source: patient Mode of arrival: ambulatory Limitations: no limitations History of Present Illness HPI narrative: 36-year-old female presents with complaint of migraine for 5 days. Reports that she can normally drink caffeine and take Excedrin and pain will get better. Has taken several doses of Excedrin with no relief. States pain is to right temporal area which is a normal migraine for her. She denies nausea vomiting at this time complaining of light sensitivity. Has lights off in room. She is alert and oriented. Speaking in full sentences. Ambulatory with steady gait. All systems reviewed and negative except as noted above. Related Data Home Medications Medication Instructions Recorded Confirmed lamotrigine 150 mg PO BID 07/05/21 03/01/22 bupropion HCl 150 mg PO DAILY 03/01/22 03/01/22 cariprazine [Vraylar] 4.5 mg PO DAILY 03/01/22 03/01/22 lactic [id number]-[id number] 1 appful VAGINAL PRN PRN 03/01/22 03/01/22 [Phexxi] Allergies Allergy/AdvReac Type Severity Reaction Status Date / Time cefaclor Allergy Mild Hives Verified 03/01/22 11:52 codeine AdvReac Intermediate Nausea and Verified 03/01/22 11:52 Vomiting Review of Systems Review of Systems: CONSTITUTIONAL: Denies fever, chills, or sweats. EYES: Denies visual changes, redness, or discharge. ENT: Denies rhinorrhea, congestion, sore throat, or otalgia. CARDIOVASCULAR: Denies chest pain, palpitations, or edema. RESPIRATORY: Denies cough or dyspnea. GASTROINTESTINAL: Denies abdominal pain, nausea, vomiting, or diarrhea. GENITOURINARY: Denies dysuria or hematuria. SKIN: Denies rash or itching. MUSCULOSKELETAL: Denies back pain, joint pain, or myalgia. NEUROLOGIC: Reports headache. Denies numbness, or weakness. PSYCHIATRIC: Denies anxiety or depression. All other systems reviewed are negative, except as documented in HPI. [facility] Family History Family History Sibling Cerebral palsy Social History Social History Smoking status: Former smoker Alcohol intake: never Substance use: never Additional occupation/education comments: [employer] Gender identity (if verbalized by the patient): Female Spiritual care concerns: No Comments At time of signature, agree with nursing past medical, surgical, social and family history. There is no relevant family history pertinent to the presenting complaint. Exam Narrative: GENERAL: This is a well-nourished, well-developed patient, in no apparent distress. HEAD: normocephalic, atraumatic. EYES: PERRL. Sclera clear/white. Vision is grossly intact. EARS: External ears normal, auditory canals clear and without drainage, TMs normal without perforation. Hearing grossly intact. NOSE: External nose normal with no obvious nasal discharge, nares without redness, no rhinorrhea. THROAT: Mucous membranes moist, posterior pharynx clear. NECK: Neck supple, non-tender without lymphadenopathy, masses or thyromegaly. CARDIOVASCULAR: Regular rate and rhythm without murmurs, gallops, or rubs. RESPIRATORY: Clear to auscultation. Breath sounds equal bilaterally. No wheezes, rales, or rhonchi. SKIN: warm, Dry, intact with no suspicious lesions or rash, good texture and turgor. NEURO: awake, alert, and oriented to person, place and time. There were no obvious focal neurologic abnormalities. EXTREMITIES: Normal range of motion to all extremities. Course Course Level of Care: Express Care Visit Vital Signs Vital signs: Vital Signs Temperature 36.6 C 03/01/22 11:48 Pulse Rate 86 03/01/22 11:48 Respiratory Rate 18 03/01/22 11:48 Blood Pressure 142/104 H 03/01/22 11:48 Pulse Oximetry 100 03/01/22 11:48 Temperature 36.6 C 03/01/22 11:48 Pulse Rate 86 03/01/22 11:
[2022-03-01] MEDS: ONDANSETRON HCL ODT 4 MG TABLET SUBLINGUAL (12:24)
[2022-03-01] MEDS: KETOROLAC (*BKC) 60 MG/2 ML VIAL IM (12:24)
[2022-03-01] MEDS: diphenhydrAMINE HCl CAP 25 MG CAPSULE PO (12:24)
== END 2022-03-01 12:40 | disposition home or self-care (01) ==
PROVIDERS: Emergency Provider Nurse Practitioner Family; PCP Family Medicine
DX: G43.909 Migraine, unspecified, not intractable, without status migrainosus (principal); Z87.891 Personal history of nicotine dependence; J45.909 Unspecified asthma, uncomplicated; F31.9 Bipolar disorder, unspecified
CPT/HCPCS: 96372; 99213; A9270; G0463; J1885

== ENCOUNTER 2022-03-02 08:37 | Emergency (ER) | payer OTHER, SELFPAY ==
[2022-03-02 08:48] VITALS: BP 137/84; PULSE 93; RESP 16; TEMP 36.6; O2SAT 100
--- NOTE | 2022-03-02 09:01 | ED.HA ---
HPI - Headache General Chief Complaint: Headache Stated Complaint: migraine Time Seen by Provider: 03/02/22 08:51 History of Present Illness HPI Narrative: 36-year-old previously healthy female with a history of migraine headaches who presents for evaluation of a intermittent headache for the past 5 days. She states the headache is intermittent in nature, and is pulsatile, it is present over her right temporal region. States she also feels the pain in the right side of her teeth. The pain has developed gradually and was not sudden in nature. There is only transient relief after ibuprofen, Tylenol, Excedrin, and bubital. It is associated with photophobia, nausea, and she states occasional blurry vision. She has additionally been experiencing sinus drainage, congestion, and cough for the past several months. Denies relief after Sudafed. Was seen at urgent care yesterday, received Toradol and Zofran without much relief. Related Data Home Medications Medication Instructions Recorded Confirmed lamotrigine 150 mg PO BID 07/05/21 03/01/22 bupropion HCl 150 mg PO DAILY 03/01/22 03/01/22 cariprazine [Vraylar] 4.5 mg PO DAILY 03/01/22 03/01/22 lactic fgjz-jtrjmh-hnyenxxan 1 appful VAGINAL PRN PRN 03/01/22 03/01/22 [Phexxi] Allergies Allergy/AdvReac Type Severity Reaction Status Date / Time cefaclor Allergy Mild Hives Verified 03/01/22 11:52 codeine AdvReac Intermediate Nausea and Verified 03/01/22 11:52 Vomiting Review of Systems Review of Systems: Gen.: Denies fevers or chills Eyes: Denies eye pain or visual change ENT: Reports congestion, cough. Respiratory: Denies shortness of breath or cough CV: Denies chest pain or palpitations GI: Denies abdominal pain nausea, emesis or diarrhea denies burning, urgency, frequency or hematuria Musculoskeletal: Denies back pain or muscle pain Neuro: Reports headache. Denies numbness, tingling, weakness or focal weakness Skin: Denies rash Except as documented, all other systems reviewed and negative All systems reviewed & are unremarkable except as noted in HPI and below PMFSH Family History Family History Sibling Cerebral palsy Social History Social History Smoking status: Former smoker Alcohol intake: never Substance use: never Additional occupation/education comments: [employer] Gender identity (if verbalized by the patient): Female Spiritual care concerns: No Exam Narrative: APPEARANCE: Well appearing, no pain in distress, well-nourished. Head: normocephalic and atraumatic. EYES: PERRLA/EOMI, conjunctivae clear NOSE: No nasal drainage EARS: External ear normal in appearance THROAT: Oropharynx is clear. Mucous membranes are moist. NECK: Supple. No adenopathy, no masses. RESPIRATORY: Airway patent, respirations nonlabored. Clear to auscultation bilaterally, no rales, rhonchi, wheezing. CARDIOVASCULAR: Regular rate and rhythm without murmurs, rubs, or gallops. ABDOMINAL: Normoactive bowel sounds. Soft, nontender, nondistended. No rebound tenderness or guarding. MUSCULOSKELETAL: Extremities are warm and well-perfused. Moves all extremities well. No edema. NEURO: Normal speech. No focal neurologic deficits. SKIN: Skin is warm and dry. No rashes. PSYCHIATRIC: Normal affect/mood. Course Vital Signs Vital signs: Vital Signs Temperature 97.8 F 03/02/22 08:48 Pulse Rate 93 03/02/22 08:48 Respiratory Rate 16 03/02/22 08:48 Blood Pressure 137/84 03/02/22 08:48 Pulse Oximetry 100 03/02/22 08:48 Temperature 97.8 F 03/02/22 08:48 Pulse Rate 82 03/02/22 10:39 Respiratory Rate 16 03/02/22 10:39 Blood Pressure 128/86 03/02/22 10:39 Pulse Oximetry 100 03/02/22 10:39 MDM - Headache MDM Narrative Medical decision making narrative: 36-year-old female here with headache that came on gradually for the past
[2022-03-02] MEDS: ACETAMINOPHEN 500 MG TABLET 1000 MG PO (09:23)
[2022-03-02] MEDS: SODIUM CHLORIDE 0.9% IV 1,000 ML 999 ML IV CONT (09:25)
[2022-03-02] MEDS: diphenhydrAMINE HCl INJ 50 MG/ML VIAL 25 MG IV PUSH (09:25)
[2022-03-02] MEDS: METOCLOPRAMIDE HCL INJ 10 MG/2 ML VIAL IV PUSH (09:25)
[2022-03-02 10:10] VITALS: BP 126/86; PULSE 74; RESP 18; O2SAT 100
[2022-03-02 10:39] VITALS: BP 128/86; PULSE 82; RESP 16; O2SAT 100
== END 2022-03-02 10:40 | disposition home or self-care (01) ==
PROVIDERS: Emergency Provider Emergency Medicine; PCP Family Medicine
DX: R51.9 Headache, unspecified (principal); Z87.891 Personal history of nicotine dependence
CPT/HCPCS: 96361; 96374; 96375; 99284; A9270; J1100; J1200; J2765; J7030

== ENCOUNTER 2022-03-09 10:45 | Emergency (ER) | payer OTHER, SELFPAY ==
[2022-03-09 11:02] VITALS: BP 155/100; PULSE 80; RESP 18; TEMP 36.9; O2SAT 100
--- NOTE | 2022-03-09 11:35 | ED.NAVMDI ---
HPI - Nausea/Vomiting/Diarrhea General Chief complaint: Nausea/Vomiting/Diarrhea Stated complaint: Heartburn,Vomiting Time Seen by Provider: 03/09/22 11:35 Source: patient Mode of arrival: ambulatory Limitations: no limitations History of Present Illness HPI Narrative: 36-year-old female with history of bipolar presents with complaint of acid reflux symptoms since 1 PM yesterday. Patient reports that symptoms started after eating a crab COVID and fries from [employer]. Has taken 2 doses of Prilosec and multiple times with no relief. Reports that she feels a burning in her chest and throat and is belching up the taste of the club sandwich from yesterday. Reports history of intermittent acid reflux symptoms have always been treated with uahy-gvr-cufjqjt medications. States she has never had reflux for this long that was not improved with Prilosec. Has never seen her PCP for the symptoms. No current nausea or vomiting. Patient is well-appearing. All systems reviewed and negative except as noted above. Related Data Home Medications Medication Instructions Recorded Confirmed lamotrigine 150 mg PO BID 07/05/21 03/09/22 bupropion HCl 150 mg PO DAILY 03/01/22 03/09/22 cariprazine [Vraylar] 4.5 mg PO DAILY 03/01/22 03/09/22 alprazolam 1 mg PO PRN PRN 03/09/22 03/09/22 Allergies Allergy/AdvReac Type Severity Reaction Status Date / Time cefaclor Allergy Mild Hives Verified 03/09/22 11:32 codeine AdvReac Intermediate Nausea and Verified 03/09/22 11:32 Vomiting Review of Systems Review of Systems: CONSTITUTIONAL: Denies fever, chills, or sweats. EYES: Denies visual changes, redness, or discharge. ENT: Denies rhinorrhea, congestion, sore throat, or otalgia. CARDIOVASCULAR: Denies chest pain, palpitations, or edema. RESPIRATORY: Denies cough or dyspnea. GASTROINTESTINAL: Denies abdominal pain, nausea, vomiting, or diarrhea. Reports acid reflux. GENITOURINARY: Denies dysuria or hematuria. SKIN: Denies rash or itching. MUSCULOSKELETAL: Denies back pain, joint pain, or myalgia. NEUROLOGIC: Denies headache, numbness, or weakness. PSYCHIATRIC: Denies anxiety or depression. All other systems reviewed are negative, except as documented in HPI. PMFSH Family History Family History Sibling Cerebral palsy Social History Social History Smoking status: Former smoker Alcohol intake: never Substance use: never Additional occupation/education comments: [employer] Gender identity (if verbalized by the patient): Female Spiritual care concerns: No Comments At time of signature, agree with nursing past medical, surgical, social and family history. There is no relevant family history pertinent to the presenting complaint. Exam Narrative: GENERAL: This is a well-nourished, well-developed patient, in no apparent distress. HEAD: normocephalic, atraumatic. EYES: PERRL. Sclera clear/white. Vision is grossly intact. EARS: External ears normal NOSE: External nose normal THROAT: Mucous membranes moist, posterior pharynx clear. NECK: Neck supple, non-tender without lymphadenopathy, masses or thyromegaly. CARDIOVASCULAR: Regular rate and rhythm without murmurs, gallops, or rubs. RESPIRATORY: Clear to auscultation. Breath sounds equal bilaterally. No wheezes, rales, or rhonchi. GASTROINTESTINAL: Abdomen soft, non-tender, nondistended. Bowel sounds are active. No hepato-splenomegaly, or palpable masses. No guarding. SKIN: warm, Dry, intact with no suspicious lesions or rash, good texture and turgor. NEURO: awake, alert, and oriented to person, place and time. There were no obvious focal neurologic abnormalities. EXTREMITIES: Normal range of motion to all extremities. Course Course Level of Care: Express Care Visit Reevaluation(s) Reevaluation #1: Patient reports some relief from burning and belching. Date: 03/09/22
[2022-03-09] MEDS: LIDOCAINE HCL 2% VISC SOLN 15 ML UDC PO (11:42)
[2022-03-09] MEDS: MAG HYDROX/AL HYDROX/SIMETH 30 ML UDC PO (11:42)
== END 2022-03-09 12:10 | disposition home or self-care (01) ==
PROVIDERS: Emergency Provider Nurse Practitioner Family; PCP Family Medicine
DX: K21.9 Gastro-esophageal reflux disease without esophagitis (principal); R03.0 Elevated blood-pressure reading, without diagnosis of hypertension; Z87.891 Personal history of nicotine dependence
CPT/HCPCS: 99213; A9270; G0463

== ENCOUNTER 2025-03-07 07:50 | Outpatient (CLI) | payer OTHER, SELFPAY ==
--- NOTE | ~2025-03-07 | MR_ITS ---
MRI of the neck CLINICAL HISTORY: Nasopharyngeal mass TECHNIQUE: Axial T1-weighted, STIR, and T1 fat-sat images, coronal T1-weighted and STIR images, and s agittal T1-weighted images were performed. Following intravenous administration of 20 cc MultiHance g adolinium, T1-weighted fat-sat imaging was performed in the axial, coronal, and sagittal planes. FINDINGS: No abnormal/suspicious mass lesion identified. Mildly prominent bilateral cervical lymph no cameron are probably within normal limits, or may be reactive. No mass in the nasopharynx or oropharynx i dentified. Mild prominence of the adenoids noted. Question mild prominence of the soft palate, but th is may be related to patient positioning. Epiglottis unremarkable. Lung apices are grossly clear. Parotid and submandibular glands appear unremarkable. Visualized paran alden sinuses are clear. There is mild prominence of the mucosa of the nasal turbinates diffusely. Vis ualized orbits are unremarkable. Mild mastoid effusions are present bilaterally. IMPRESSION: No abnormal/suspicious mass lesion seen. Mild prominence of the adenoids and possibly the soft palate , without focal mass. Correlate with direct inspection as indicated. Minimally prominent cervical lymph nodes bilaterally are most likely reactive. Reviewed, dictated and finalized at location . IMPRESSION: No abnormal/suspicious mass lesion seen. Mild prominence of the adenoids and po ssibly the soft palate, without focal mass. Correlate with direct inspection as indicated. Minimally prominent cervical lymph nodes bilaterally are most likely reactive.
== END 2025-03-07 07:51 | disposition home or self-care (01) ==
PROVIDERS: PCP Otolaryngology; Visit Provider Otolaryngology
DX: H69.83 Other specified disorders of Eustachian tube, bilateral (principal); H65.21 Chronic serous otitis media, right ear; J35.2 Hypertrophy of adenoids; J39.2 Other diseases of pharynx
CPT/HCPCS: 70543; A9577